=== PATIENT | female | born 1995 | race Caucasian/White ===

== ENCOUNTER 2016-07-24 21:12 | Emergency (ER) | payer BC ==
[2016-07-24] MEDS ORDERED: Ondansetron ODT TAB* 4 MG PO ONE ×2 (21:30→22:00)
[2016-07-24 21:46] VITALS: BP 115/73
[2016-07-24] MEDS ORDERED: Ketorolac INJ* 30 MG/ML 1 ML VIAL IM ONE (21:51)
--- NOTE | 2016-07-24 22:21 | UC ---
Marcel Acharya Michael, scribed for Elke Marsh MD on 07/24/16 at 2138 . Dizzy HPI HPI Summary: 20 y/o female comes to [facility] presenting with dizziness that started suddenly today at 1600. Pt states she was in the sun from 12pm to 3pm today doing a "photo shoot", and was exposed enough to the sun that she got a bright red sunburn on her face. The pt also c/o n/v, SUTTON, and chills that started after the dizziness. Since the onset of her symptoms, the pt had 5 vomiting episodes, and she rates her SUTTON as a 7 out of 10 on a pain severity scale. Advil did not alleviate the SUTTON. The pt's LNMP was one week ago, and she denies any chance of . - History Of Current Complaint Chief Complaint: UCDizziness Stated Complaint: DIZZY,VOMITING,FEVER Time Seen by Provider: 07/24/16 21:14 Hx Obtained From: Patient, Medical Records Hx Last Menstrual Period: 07/18/16 ?: No Onset/Duration: Sudden Onset, Lasting Hours, Still Present Timing: Constant Severity Initially: Moderate Severity Currently: Moderate Pain Intensity: 7 Pain Scale Used: 0-10 Numeric Character: Dizzy Aggravating Factor(s): Nothing Alleviating Factor(s): Nothing Associated Signs And Symptoms: Positive: Nausea - dizziness. SUTTON., Vomiting - Risk Factors Cardiac Risk Factors: Negative CVA Risk Factor: Negative - Allergies/Home Medications Allergies/Adverse Reactions: Allergies Allergy/AdvReac Type Severity Reaction Status Date / Time No Known Allergies Allergy Verified 07/24/16 21:25 Home Medications: Home Medications Lisdexamfetamine Dimesylate [Vyvanse] 30 mg PO DAILY 07/24/16 [History Confirmed 07/24/16] PMH/Surg Hx/FS Hx/Imm Hx Previously Healthy: Yes - patient denies significant PMHx - Surgical History Surgical History: None - Family History Known Family History: Positive: Diabetes - Social History Occupation: Student Lives: With Family Alcohol Use: Occasionally Substance Use Type: Marijuana Substance Use Comment - Amount & Last Used: occasional Smoking Status (MU): Never Smoked Tobacco Review of Systems Constitutional: Chills ENT: Negative Respiratory: Negative Cardiovascular: Negative Gastrointestinal: Vomiting, Other - nausea Genitourinary: Negative Musculoskeletal: Negative Neurological: Headache, Other - dizziness All Other Systems Reviewed And Are Negative: Yes Physical Exam Triage Information Reviewed: Yes Appearance: No Pain Distress, Well-Nourished, Ill-Appearing, Other: - sunburn face Vital Signs: Initial Vital Signs Temp 99.5 F 07/24/16 21:13 Pulse 86 07/24/16 21:13 Resp 16 07/24/16 21:13 BP 121/88 07/24/16 21:13 Pulse Ox 100 07/24/16 21:13 Vital Signs Reviewed: Yes Eyes: Positive: Conjunctiva Clear ENT: Positive: Normal ENT inspection, Hearing grossly normal. Negative: Muffled /hoarse voice Neck: Positive: Supple, Nontender, No Lymphadenopathy Respiratory: Positive: Lungs clear, Normal breath sounds, No respiratory distress Cardiovascular: Positive: RRR, No Murmur, Pulses Normal, Brisk Capillary Refill Abdomen Description: Positive: Nontender, No Organomegaly, Soft. Negative: CVA Tenderness (R), CVA Tenderness (L), Distended, Guarding, McBurney's Point Tenderness, Peritoneal Signs, Pulsatile Mass, Splenomegaly Bowel Sounds: Positive: Present Musculoskeletal: Positive: Strength Intact, ROM Intact Neurological: Positive: Alert, Muscle Tone Normal Psychological Exam: Normal Skin Exam: Normal Re-Evaluation - Re-Evaluation 1st Re-Evaluation Time: 21:43 Change: Unchanged Comment: pt is asking for Ibuprofen for her SUTTON. She agrees to a Toradol shot. Second Eval Re-Evaluation Time: 22:10 - headache markedly decreased, nausea gone. Change: Improved Dizzy Course/Dx - Course Course Of Treatment: Urine analysis-trace blood. Influenze A and B negative. Test negative. Toradol 30mg given with relief of headache. Zofran 4mg given with relife. Patient has not vomited during visit. Tolerated water and ice chips without vomiting. - Differential Dx/Diagnosis Differential Diagnosis/HQI/PQRI: Anxiety, Hyperventilation, Hypovolemia, Metabolic Abnormality, Other - influenza, , heat exhaustion Provider Diagnoses: acute vomiting. headache. heat exhaustion Discharge - Discharge Plan Condition: Stable Disposition: HOME Prescriptions: Ondansetron ODT TAB* [Zofran 4 MG Odt TAB*] 4 mg PO Q6H PRN #12 tab.odt PRN Reason: Nausea Patient Education Materials: Heat Exhaustion (ED), Acute Nausea and Vomiting ( ED) Forms: *School Release Additional Instructions: Follow up with the [facility] or return to urgent care or the emergency room if you develop any new or worsening symptoms. You were given zofran 4mg for nausea. You were given Toradol 30mg injectable for you headache pain. Your influenza swab and your test were all negative. Your urine showed specific gravity 1.015, no ketones, trace blood, and no white blood cells. This is not indicative of a UTI, and does not show dehydration. The trace blood in the urine can be left over from having had your period recently. You should have your urine tested again to make sure there is no blood in it. Your vital signs did not show a drop in BP or a rise in pulse with position, which also supports that you are not significantly dehydrated. The documentation as recorded by the Marcel turcios Michael accurately reflects the service I personally performed and the decisions made by me, Elke Marsh MD.
== END 2016-07-24 22:16 | disposition home or self-care (01) ==
LOC: UCEAST 21:12
DX: T67.5XXA Heat exhaustion, unspecified, initial encounter (principal); R11.10 Vomiting, unspecified; R51 Headache; F12.90 Cannabis use, unspecified, uncomplicated
CPT/HCPCS: 81003; 84702; 87502; 96372; 99213; G0463; J1885